=== PATIENT | male | born 1980 | race African-American/Black ===

== ENCOUNTER 2019-12-22 09:26 | Observation (INO) ==
[2019-12-22 09:42] VITALS: BMI 22.5
--- NOTE | 2019-12-22 09:52 | DR.ABDMALE ---
HPI - Time seen Time seen: 09:50 - PCP Primary Care Physician: NFD - Complaint Chief Complaint Doctors Comments: Patient with complaint of abdominal pain and vomiting x 1 month. Hx of same in past but does not know DX. Patient was seen in [place] in the past [address] and labs. Patient denies any DX. Pateint states he is on BP, pain and nausea pills. Chief Complaint:: PT C/O 1 MONTH HISTORY OF INTERMITTENT EPIGASTRIC CRAMPING PAIN ASSOCIATED WITH NAUSEA AND VOMITING. PT STATES THAT PAIN IS WORSENED BY DRINKING LIQUIDS. PT REPORTS DECREASED APPETITE. - COVID-19 Coronavirus risk:travel/contact w/high risk person: No Has patient experienced Coronavirus symptoms: No - Mode of arrival Mode of Arrival: Ambulatory - Timing Onset of Chief Complaint: 12/22/19 Came on: Gradually - Duration Duration: Intermittent How lon Duration: Days - Location Location: Epigastric - Severity Severity: Moderate - Quality Quality: Aching - Context Onset: Gradually History of: Similar pain (dx) - Modifying factors Worsening Factors: Food - Associated signs and symptoms Associated Signs and Symptoms: None, Nausea, Vomiting PMH - PMH Past Medical History: Yes Past Medical History: Diabetes Past Surgical History: Yes Surgical History: Ortho Surgery - Family History History of Family Medical Conditions: Yes Family Medical History: Diabetes Mellitus - Social History Does patient currently use any type of tobacco product: No Have you used tobacco products in the last 12 months: No Type of Tobacco Use: Cigars Does any household member use tobacco: No Alcohol Use: Rarely Do you use any recreational Drugs:: Yes (MARIJUANA DAILY) Lives With: Spouse Lives Where: Home - Travel Risk Coronavirus risk:travel/contact w/high risk person: No Has patient experienced Coronavirus symptoms: No - infectious screening In the last 2 months have you had wt loss of >10#?: NO Have you had fever, night sweats or hemotysis?: No Have you traveled outside the country in the last 6 months?: No Isolation: Standard ROS - Review of Systems Constitutional: No Symptoms Reported Eyes: No Symptoms Reported ENTM: No Symptoms Reported Respiratoy: No Symptoms Reported Cardiovascular: No Symptoms Reported Gastrointestinal/Abdominal: Abdominal Pain, Nausea, Vomiting Genitourinary: No Symptoms Reported Neurological: No Symptoms Reported Musculoskeletal: No Symptoms Reported Integumentary: No Symptoms Reported Hematologic/Lymphatic: No Symptoms Reported Endocrine: No Symptoms Reported Psychiatric: No Symptoms Reported All Other Systems: Reviewed and Negative PE - General Limitations: No Limitations General Appearance: Alert, In No Apparent Distress - Head Head Exam: Normal Inspection - Eyes Eye exam: Normal Appearance, EOMI - ENT ENT Exam: Normal Exam - Neck Neck Exam: Normal Inspection, Full ROM, Trachea Midline - Chest Chest Inspection: Normal Inspection - Respiratory Respiratory Exam: Normal Lung Sounds Bilat Respiratory Exam: Bilateral Clear to Auscultation - Cardiovascular Cardiovascular Exam: Regular Rate - Abdominal Exam Abdominal Exam: Normal Inspection, Normal Bowel Sounds, Soft, Tenderness (epigastric). negative: Distention, Guarding Abdominal Tenderness: Epigastrium - Rectal Rectal Exam: Deferred - Back Back Exam: Normal Inspection - Extremeties Extremities Exam: Normal Inspection - Exam: Male: Normal Inspection, Deferred - Neurologic Neurological Exam: Alert, Oriented X3, CN II-XII Intact - Psychiatric Psychiatric Exam: Normal Mood - Skin Skin Exam: Intact, Normal Color - Vital Signs Vital Signs: Temp Pulse Resp BP Pulse Ox 12/22/19 09:37 98.0 F 68 22 129/77 98 Course - Treatment Treatment: 1135: records from [place] reviewed, labs and ct Abdo/pelvis w/ contrast unremarkable ROR - Labs Reviewed Result Diagrams: 12/22/19 10:06 12/22/19 10:06 - Labs Reviewed Laboratory: WBC 9.9 X10^3/uL (3.6-10.0) 12/22/19 10:06 RBC 4.84 X10^6/uL (4.7-6.0) 12/22/19 10:06 Hgb 13.4 g/dL (13.5-18.0) L 12/22/19 10:06 Hct 40.6 % (42.0-54.0) L 12/22/19 10:06 MCV 83.9 fL (80.0-100.0) 12/22/19 10:06 MCH 27.6 pg (27.0-34.0) 12/22/19 10:06 MCHC 32.9 g/dL (33.0-35.0) L 12/22/19 10:06 RDW 15.8 % (11.6-16.5) 12/22/19 10:06 Plt Count 192 X10^3/uL (150.0-450.0) 12/22/19 10:06 MPV 8.1 fL (7.4-11.0) 12/22/19 10:06 Neut % (Auto) 72.7 % (42.0-75.0) 12/22/19 10:06 Lymph % (Auto) 18.4 % (21.0-51.0) L 12/22/19 10:06 [place] % (Auto) 7.1 % (0.0-13.0) 12/22/19 10:06 Eos % (Auto) 0.9 % (0.9-2.9) 12/22/19 10:06 Baso % (Auto) 0.9 % (0.2-1.0) 12/22/19 10:06 Neut # (Auto) 7.2 x10^3/uL (2.2-4.8) H 12/22/19 10:06 Lymph # (Auto) 1.8 X10^3/uL (1.3-2.9) 12/22/19 10:06 [place] # (Auto) 0.7 x10^3/uL (0.3-0.8) 12/22/19 10:06 Eos # (Auto) 0.1 x10^3/uL (0.0-0.2) 12/22/19 10:06 Baso # (Auto) 0.1 X10^3/uL (0.0-0.1) 12/22/19 10:06 Absolute Nucleated RBC 0.0 /100WBC 12/22/19 10:06 Sodium 141 mmol/L (136-145) 12/22/19 10:06 Corrected Sodium 142 mmol/L (136-145) 12/22/19 10:06 Potassium 3.8 mmol/L (3.5-5.1) 12/22/19 10:06 Chloride 104 mmol/L (98-107) 12/22/19 10:06 Carbon Dioxide 32.1 mmol/L (21-32) H 12/22/19 10:06 BUN 15 mg/dL (7-18) 12/22/19 10:06 Creatinine 1.20 mg/dL (0.70-1.30) 12/22/19 10:06 Est GFR (MDRD) Af Amer > 60 (>60) 12/22/19 10:06 Est GFR (MDRD) Non-Af > 60 (>60) 12/22/19 10:06 Glucose 155 mg/dL (65-99) H 12/22/19 10:06 Calcium 8.6 mg/dL (8.5-10.1) 12/22/19 10:06 Corrected Calcium 9.4 mg/dL (8.5-10.1) 12/22/19 10:06 Total Bilirubin 0.30 mg/dL (0.2-1.0) 12/22/19 10:06 AST 17 Units/L (15-37) 12/22/19 10:06 ALT 18 Units/L (12-78) 12/22/19 10:06 Alkaline Phosphatase 82 Units/L (46-116) 12/22/19 10:06 Total Protein 6.7 g/dL (6.4-8.2) 12/22/19 10:06 Albumin 3.0 g/dL (3.4-5.0) L 12/22/19 10:06 Globulin 3.7 g/dL (2.5-4.5) 12/22/19 10:06 Albumin/Globulin Ratio 0.8 Ratio (1.1-2.1) L 12/22/19 10:06 Lipase 122 Units/L (73-393) 12/22/19 10:06 Opioid - Opioid Risk Tool Total: 0 Total Score Risk Category: Low Risk - Diagnosis Discharge Problem: Abdominal pain Qualifiers: Abdominal location: epigastric Qualified Code(s): R10.13 - Epigastric pain Gastritis Qualifiers: Gastritis type: unspecified gastritis Chronicity: chronic Gastritis bleeding: without bleeding Qualified Code(s): K29.50 - Unspecified chronic gastritis without bleeding - Discharge Plan Condition: Stable - Follow ups/Referrals Follow ups/Referrals: NFD,None [Primary Care Provider] - 3 days - Instructions
[2019-12-22] MEDS ORDERED: ZOFRAN INJ 4 MG VIAL IVP ONE (09:57)
[2019-12-22] MEDS ORDERED: NS 500 ML IV 1,000 ML IV ONE (09:57)
[2019-12-22] MEDS ORDERED: NS 1000 ML 1,000 ML ONE (10:05)
[2019-12-22 10:21] LABS: BASOPHILS # (AUTO) 0.1 X10^3/uL (0.0-0.1); BASOPHILS % (AUTO) 0.9 % (0.2-1.0); EOSINOPHILS # (AUTO) 0.1 x10^3/uL (0.0-0.2); EOSINOPHILS % (AUTO) 0.9 % (0.9-2.9); HEMATOCRIT 40.6 % (42.0-54.0); HEMOGLOBIN 13.4 g/dL (13.5-18.0); LYMPHOCYTES # (AUTO) 1.8 X10^3/uL (1.3-2.9); LYMPHOCYTES % (AUTO) 18.4 % (21.0-51.0); MEAN CORPUSCULAR HEMOGLOBIN 27.6 pg (27.0-34.0); MEAN CORPUSCULAR HGB CONC 32.9 g/dL (33.0-35.0); MEAN CORPUSCULAR VOLUME 83.9 fL (80.0-100.0); MEAN PLATELET VOLUME 8.1 fL (7.4-11.0); MONOCYTES # (AUTO) 0.7 x10^3/uL (0.3-0.8); MONOCYTES % (AUTO) 7.1 % (0.0-13.0); NEUTROPHILS # (AUTO) 7.2 x10^3/uL (2.2-4.8); NEUTROPHILS % (AUTO) 72.7 % (42.0-75.0); PLATELET COUNT 192 X10^3/uL (150.0-450.0); RED BLOOD COUNT 4.84 X10^6/uL (4.7-6.0); RED CELL DISTRIBUTION WIDTH 15.8 % (11.6-16.5); WHITE BLOOD COUNT 9.9 X10^3/uL (3.6-10.0)
[2019-12-22] MEDS ORDERED: ZOFRAN INJ 4 MG VIAL ONE (10:26)
[2019-12-22 10:28] LABS: ALANINE AMINOTRANSFERASE 18 Units/L (12-78); ALKALINE PHOSPHATASE 82 Units/L (46-116); ASPARTATE AMINO TRANSFERASE 17 Units/L (15-37); BLOOD UREA NITROGEN 15 mg/dL (7-18); CALCIUM 8.6 mg/dL (8.5-10.1); CARBON DIOXIDE 32.1 mmol/L (21-32); CHLORIDE 104 mmol/L (98-107); COR CA(FOR HYPOALB) 9.4 mg/dL (8.5-10.1); COR NA(FOR HYPERGLY) 142 mmol/L (136-145); LIPASE 122 Units/L (73-393); SODIUM 141 mmol/L (136-145); TOTAL PROTEIN 6.7 g/dL (6.4-8.2); eGFR NON BLACK RACES > 60 (>60)
[2019-12-22] MEDS: DILAUDID INJ IVP PRN ×2 (13:45→20:53)
[2019-12-22] MEDS: PROTONIX INJ 40 MG VIAL IVP SCH (13:53)
[2019-12-22] MEDS: D5 1/2 NS 1000 ML 1,000 ML IV SCH ×3 (13:53→22:12)
[2019-12-22] MEDS ORDERED: ZOFRAN INJ 4 MG VIAL IVP PRN (13:54)
--- NOTE | 2019-12-22 14:22 | DR.H&P ---
H&P History & Physical for Day of: H&P Date: 12/22/19 Chief Complaint Chief Complaint: Abdominal pain Allergies Allergies Allergy/AdvReac Type Severity Reaction Status Date / Time No Known Drug Allergies Allergy Verified 12/22/19 14:49 History of Present Illness History of Present Illness: Pt is a 39 yo m pmhx HTN, DM, c/o abdominal pain and vomiting for the past month that has acutely worsened. Reports pain is worse right after eating and is associated with nausea. He states that he rarely drinks alcohol, and smokes(marijuana), denies any other drug use. He was recently seen at [facility] and had CT abdomen that was negative and labs that were unremarkable. Initial labs: Wbc 9.9, Hgb 13.4, Plt 192, Na 141, K 3.8, Cr 1.2. AST 17, ALT 18, AlkP 82, Lipase 122. -Dr Shaw-Surgery consulted. Treat nausea with Zofran, start PPI, keep pt NPO and on SSI. Will get ultrasound of abdomen. Plan for EGD in the morning. Past Medical History Past Medical History: Diabetes and Hypertension Past Surgical History Surgical History: Ortho Surgery Family History Family Medical History: Diabetes Mellitus Social History Does patient currently use any type of tobacco product: No Have you used tobacco products in the last 12 months: No Type of Tobacco Use: Cigars Does any household member use tobacco: No Alcohol Use: Rarely Medications Home Medications: No Known Drug Allergies Allergy (Verified 12/22/19 13:56) CONTINUE taking the following medications famotidine 20 mg PO BID 12/22/19 [History] hyoscyamine sulfate 0.125 mg PO QID PRN 12/22/19 [History] insulin lispro protamin-lispro [Humalog Mix 75-25(U-100)Insuln] 25 unit SUBCUT HS 12/22/19 [History] insulin lispro protamin-lispro [Humalog Mix 75-25(U-100)Insuln] 45 ml SUBCUT DAILY 12/22/19 [History] lisinopril 20 mg PO DAILY 12/22/19 [History] losartan-hydrochlorothiazide [Hyzaar] 1 tab PO DAILY 12/22/19 [History] Labs Result Diagrams: 12/22/19 10:06 12/22/19 10:06 Labs: Laboratory WBC 9.9 X10^3/uL (3.6-10.0) 12/22/19 10:06 RBC 4.84 X10^6/uL (4.7-6.0) 12/22/19 10:06 Hgb 13.4 g/dL (13.5-18.0) L 12/22/19 10:06 Hct 40.6 % (42.0-54.0) L 12/22/19 10:06 MCV 83.9 fL (80.0-100.0) 12/22/19 10:06 MCH 27.6 pg (27.0-34.0) 12/22/19 10:06 MCHC 32.9 g/dL (33.0-35.0) L 12/22/19 10:06 RDW 15.8 % (11.6-16.5) 12/22/19 10:06 Plt Count 192 X10^3/uL (150.0-450.0) 12/22/19 10:06 MPV 8.1 fL (7.4-11.0) 12/22/19 10:06 Neut % (Auto) 72.7 % (42.0-75.0) 12/22/19 10:06 Lymph % (Auto) 18.4 % (21.0-51.0) L 12/22/19 10:06 [place] % (Auto) 7.1 % (0.0-13.0) 12/22/19 10:06 Eos % (Auto) 0.9 % (0.9-2.9) 12/22/19 10:06 Baso % (Auto) 0.9 % (0.2-1.0) 12/22/19 10:06 Neut # (Auto) 7.2 x10^3/uL (2.2-4.8) H 12/22/19 10:06 Lymph # (Auto) 1.8 X10^3/uL (1.3-2.9) 12/22/19 10:06 [place] # (Auto) 0.7 x10^3/uL (0.3-0.8) 12/22/19 10:06 Eos # (Auto) 0.1 x10^3/uL (0.0-0.2) 12/22/19 10:06 Baso # (Auto) 0.1 X10^3/uL (0.0-0.1) 12/22/19 10:06 Absolute Nucleated RBC 0.0 /100WBC 12/22/19 10:06 Sodium 141 mmol/L (136-145) 12/22/19 10:06 Corrected Sodium 142 mmol/L (136-145) 12/22/19 10:06 Potassium 3.8 mmol/L (3.5-5.1) 12/22/19 10:06 Chloride 104 mmol/L (98-107) 12/22/19 10:06 Carbon Dioxide 32.1 mmol/L (21-32) H 12/22/19 10:06 BUN 15 mg/dL (7-18) 12/22/19 10:06 Creatinine 1.20 mg/dL (0.70-1.30) 12/22/19 10:06 Est GFR (MDRD) Af Amer > 60 (>60) 12/22/19 10:06 Est GFR (MDRD) Non-Af > 60 (>60) 12/22/19 10:06 Glucose 155 mg/dL (65-99) H 12/22/19 10:06 POC Glucose (mg/dL) 176 mg/dL (65-99) H 12/22/19 13:39 Calcium 8.6 mg/dL (8.5-10.1) 12/22/19 10:06 Corrected Calcium 9.4 mg/dL (8.5-10.1) 12/22/19 10:06 Total Bilirubin 0.30 mg/dL (0.2-1.0) 12/22/19 10:06 AST 17 Units/L (15-37) 12/22/19 10:06 ALT 18 Units/L (12-78) 12/22/19 10:06 Alkaline Phosphatase 82 Units/L (46-116) 12/22/19 10:06 Total Protein 6.7 g/dL (6.4-8.2) 12/22/19 10:06 Albumin 3.0 g/dL (3.4-5.0) L 12/22/19 10:06 Globulin 3.7 g/dL (2.5-4.5) 12/22/19 10:06 Albumin/Globulin Ratio 0.8 Ratio (1.1-2.1) L 12/22/19 10:06 Lipase 122 Units/L (73-393) 12/22/19 10:06 Review of Systems Constitutional: No Symptoms Reported Eyes: No Symptoms Reported ENT: No Symptoms Reported Respiratory: No Symptoms Reported Cardiovascular: No Symptoms Reported Gastrointestinal: Nausea, Vomiting and Abdominal Pain Musculoskeletal: No Symptoms Reported Skin: No Symptoms Reported Neurological: No Symptoms Reported Physical Exam Vital Signs: Temperature 98.0 F Pulse Rate [Left Brachial] 60 Pulse Rate 68 Respiratory Rate 20 Blood Pressure [Left Arm] 181/85 Blood Pressure 129/77 O2 Sat by Pulse Oximetry 98 Oriented: Normal Eyes: Normal Ear: Normal Nose: Normal Respiratory: Clear Throughout Cardiovascular: Normal : Normal Auscultation: Bowel Sounds: Normal Palpation: Normal Tenderness: LLQ and Epigastric Skin: Normal Musculoskeletal: Normal Psychiatric: Normal Assessment/Plan (1) Gastritis: Qualifiers: Chronicity: chronic Gastritis bleeding: without bleeding Gastritis type: unspecified gastritis Qualified Code(s): K29.50 - Unspecified chronic gastritis without bleeding Status: Acute Plan: Keep NPO Plan for procedure tomorrow per surgery. (2) Abdominal pain: Qualifiers: Abdominal location: epigastric Qualified Code(s): R10.13 - Epigastric pain Status: Acute (3) Hypertension: Qualifiers: Hypertension type: essential hypertension Qualified Code(s): I10 - Essential (primary) hypertension Status: Acute (4) Diabetes: Qualifiers: Diabetes mellitus complication status: without complication Diabetes mellitus type: type 1 Qualified Code(s): E10.9 - Type 1 diabetes mellitus without complications Status: Acute Review H&P Reviewed: Yes Patient was examined?: Yes
[2019-12-22] MEDS ORDERED: APRESOLINE INJ 20 MG VIAL IVP PRN (15:07)
[2019-12-22] MEDS: HYZAAR 50/12.5 MG PO SCH (16:15)
--- NOTE | 2019-12-22 17:16 | US ---
HISTORYABD/EPIGASTRIC PAINSTUDYLimited abdominal ultrasoundCOMPARISONNoneFINDINGSLiver is normal in size and echotexture with no focal intrahepatic ab normality seen. Portal vein is patent with normal hepatopetal flow.Gallbladder is normal appearing wi th no cholelithiasis, gallbladder wall thickening, or localized tenderness. Common bile duct measures 3 millimeters in diameter.Right kidney is 11.7 centimeters in length. No hydronephrosis, echogenic c alculi, or renal mass is seen on the right.IVC and pancreas are normal.IMPRESSIONUnremarkable ultraso und of the right upper abdominal quadrant. Specifically, no evidence of cholelithiasisElectronically signed by: HUDSON NEWTON (Dec 22, 2019 17:15:21)
[2019-12-23] MEDS: D5 1/2 NS 1000 ML 1,000 ML IV SCH ×3 (04:30→22:13)
[2019-12-23 05:43] LABS: BASOPHILS # (AUTO) 0.1 X10^3/uL (0.0-0.1); EOSINOPHILS # (AUTO) 0.2 x10^3/uL (0.0-0.2); HEMATOCRIT 38.3 % (42.0-54.0); HEMOGLOBIN 12.7 g/dL (13.5-18.0); LYMPHOCYTES # (AUTO) 2.4 X10^3/uL (1.3-2.9); LYMPHOCYTES % (AUTO) 31.5 % (21.0-51.0); MEAN CORPUSCULAR HEMOGLOBIN 28.1 pg (27.0-34.0); MEAN CORPUSCULAR HGB CONC 33.2 g/dL (33.0-35.0); MEAN CORPUSCULAR VOLUME 84.7 fL (80.0-100.0); MONOCYTES # (AUTO) 0.5 x10^3/uL (0.3-0.8); MONOCYTES % (AUTO) 6.3 % (0.0-13.0); NEUTROPHILS # (AUTO) 4.5 x10^3/uL (2.2-4.8); NEUTROPHILS % (AUTO) 59.2 % (42.0-75.0); PLATELET COUNT 189 X10^3/uL (150.0-450.0); RED BLOOD COUNT 4.52 X10^6/uL (4.7-6.0); RED CELL DISTRIBUTION WIDTH 15.6 % (11.6-16.5); WHITE BLOOD COUNT 7.6 X10^3/uL (3.6-10.0)
[2019-12-23 06:09] LABS: ALANINE AMINOTRANSFERASE 16 Units/L (12-78); ALBUMIN 2.5 g/dL (3.4-5.0); ALKALINE PHOSPHATASE 73 Units/L (46-116); ASPARTATE AMINO TRANSFERASE 15 Units/L (15-37); BLOOD UREA NITROGEN 10 mg/dL (7-18); CALCIUM 8.3 mg/dL (8.5-10.1); CARBON DIOXIDE 29.1 mmol/L (21-32); CHLORIDE 101 mmol/L (98-107); COR CA(FOR HYPOALB) 9.5 mg/dL (8.5-10.1); COR NA(FOR HYPERGLY) 138 mmol/L (136-145); CREATININE 1.09 mg/dL (0.70-1.30); SODIUM 136 mmol/L (136-145); eGFR NON BLACK RACES > 60 (>60)
[2019-12-23] MEDS ORDERED: POTASSIUM CHL 40 MEQ/NS 0.45% 500 ML IV PRN (06:22)
[2019-12-23] MEDS ORDERED: KLOR-CON PO PRN (06:22)
[2019-12-23] MEDS ORDERED: POTASSIUM CHLORIDE LIQ 20 MEQ UDC PO PRN (06:22)
[2019-12-23] MEDS ORDERED: K-RIDER 10 MEQ/NS 100 ML 10 MEQ/100 ML BAG IV PRN (06:22)
[2019-12-23] MEDS ORDERED: MICRO K EXTEN CAP 10 MEQ PO PRN (06:22)
[2019-12-23] MEDS ORDERED: POTASSIUM CHL 60 MEQ/NS 0.45% 500 ML IV PRN (06:22)
[2019-12-23] MEDS: HYZAAR 50/12.5 MG PO SCH (09:10)
[2019-12-23] MEDS: K-DUR TAB 20 MEQ PO PRN (09:10)
[2019-12-23] MEDS: PROTONIX INJ 40 MG VIAL IVP SCH (09:10)
[2019-12-23] MEDS ORDERED: DIPRIVAN VIAL 20 ML ONE (09:20)
[2019-12-23] MEDS ORDERED: LR 1000 ML IV 1,000 ML IV ONE (09:30)
[2019-12-23] MEDS ORDERED: DIPRIVAN VIAL 10 ML ONE (09:42)
--- NOTE | 2019-12-23 09:54 | OR.IMMED ---
Immediate Post-Op Note - Immediate Post-Op Note Pre-Op Diagnosis: abdominal pain , gastritis , PUD. Post-Op Diagnosis: diffuse gastritis , no bleeding , ulcers or obstruction . Procedure: EGD with Bx Surgeon/Auto Radio Mechanic: Valeria Drains: NONE Complications: none Condition: Stable (on IV Protonix .and for Biliary scan ..)
[2019-12-23] MEDS ORDERED: TORADOL 30 MG VIAL IVP ONE (13:32)
[2019-12-23] MEDS ORDERED: TORADOL 30 MG VIAL ONE (13:34)
[2019-12-23] MEDS ORDERED: DEMEROL INJ IVP ONE (13:49)
--- NOTE | 2019-12-23 14:40 | NM ---
HISTORYABD PAINSTUDYHIDA/HEPATOBILIARY SCAN W/EF, patient was injected with 5.57 millicuries of technetium labeled mebrofenin IV with imaging of the right upper quadrant for 60 minutes. Patient then drank 8 ounces of Ensure with gallbladder ejection fraction being calculated.COMPARISONUltrasound from previous dayFINDINGSThere is homogeneous distribution of the radiotracer in the liver. There is prompt visualization of the gallbladder at 5 minutes. Small bowel activity is not identified until 25 minutes. Gallbladder ejection fraction of 10 percent is calculated which is abnormally low.IMPRESSIONSlight delay in visualization of small-bowel activity with prominently diminished gallbladder ejection fraction of 10 percent. Findings suggest possible chronic cholecystitis/gallbladder dyskinesia.Electronically signed by: Robby Jeffrey (Dec 23, 2019 14:39:17)
--- NOTE | 2019-12-23 14:43 | PCM.PROG ---
Progress Note Progress Note for Day of Date of Exam: 12/23/19 Subjective Subjective: Pt is a 39 yo m pmhx HTN, DM, admitted for acute gastritis. He reports abdominal pain still present, nausea and pain medication has been helping. He is NPO and scheduled for EGD today. Labs/Imaging: Wbc 7.6, Hgb 12.7, Plt 189, Na 136, K 3.9, Cr 1.09. U/S gallbladder negative. -Continue Zofran, PPI. Follow up surgery recs and EGD results. Continue to monitor and follow up labs in the morning. Past Medical Family Social History Past Med/Fam/Surg Hx: No changes since H&P Allergies: Allergies No Known Drug Allergies Allergy (Verified 12/22/19 14:49) Review of Systems ROS: No change since H&P Vital Signs and I&O's Vital Signs: Temperature 98.6 F Pulse Rate [Left Brachial] 74 Pulse Rate 68 Respiratory Rate 19 Blood Pressure [Left Arm] 141/77 Blood Pressure 129/77 O2 Sat by Pulse Oximetry 100 Intake and Output: Intake & Output 12/20/19 12/21/19 12/22/19 12/23/19 23:59 23:59 23:59 23:59 Intake Total 0 / 0 0 / 0 Output Total 0 / 0 Balance 0 / 0 0 / 0 Physical Exam Oriented: Normal Eyes: Normal Ear: Normal Nose: Normal Respiratory: Normal Cardiovascular: Normal : Normal Auscultation: Bowel Sounds: Normal Tenderness: Epigastric Skin: Normal Musculoskeletal: Normal Psychiatric: Normal Speech Pattern: Clear Laboratory and Diagnostics Result Diagrams: 12/23/19 04:40 12/23/19 12:28 Labs: Laboratory WBC 7.6 X10^3/uL (3.6-10.0) 12/23/19 04:40 RBC 4.52 X10^6/uL (4.7-6.0) L 12/23/19 04:40 Hgb 12.7 g/dL (13.5-18.0) L 12/23/19 04:40 Hct 38.3 % (42.0-54.0) L 12/23/19 04:40 MCV 84.7 fL (80.0-100.0) 12/23/19 04:40 MCH 28.1 pg (27.0-34.0) 12/23/19 04:40 MCHC 33.2 g/dL (33.0-35.0) 12/23/19 04:40 RDW 15.6 % (11.6-16.5) 12/23/19 04:40 Plt Count 189 X10^3/uL (150.0-450.0) 12/23/19 04:40 MPV 9.0 fL (7.4-11.0) 12/23/19 04:40 Neut % (Auto) 59.2 % (42.0-75.0) 12/23/19 04:40 Lymph % (Auto) 31.5 % (21.0-51.0) 12/23/19 04:40 [place] % (Auto) 6.3 % (0.0-13.0) 12/23/19 04:40 Eos % (Auto) 2.0 % (0.9-2.9) 12/23/19 04:40 Baso % (Auto) 1.0 % (0.2-1.0) 12/23/19 04:40 Neut # (Auto) 4.5 x10^3/uL (2.2-4.8) 12/23/19 04:40 Lymph # (Auto) 2.4 X10^3/uL (1.3-2.9) 12/23/19 04:40 [place] # (Auto) 0.5 x10^3/uL (0.3-0.8) 12/23/19 04:40 Eos # (Auto) 0.2 x10^3/uL (0.0-0.2) 12/23/19 04:40 Baso # (Auto) 0.1 X10^3/uL (0.0-0.1) 12/23/19 04:40 Absolute Nucleated RBC 0.1 /100WBC 12/23/19 04:40 Sodium 136 mmol/L (136-145) 12/23/19 04:40 Corrected Sodium 138 mmol/L (136-145) 12/23/19 04:40 Potassium 3.9 mmol/L (3.5-5.1) 12/23/19 12:28 Chloride 101 mmol/L (98-107) 12/23/19 04:40 Carbon Dioxide 29.1 mmol/L (21-32) 12/23/19 04:40 BUN 10 mg/dL (7-18) 12/23/19 04:40 Creatinine 1.09 mg/dL (0.70-1.30) 12/23/19 04:40 Est GFR (MDRD) Af Amer > 60 (>60) 12/23/19 04:40 Est GFR (MDRD) Non-Af > 60 (>60) 12/23/19 04:40 Glucose 203 mg/dL (65-99) H 12/23/19 04:40 POC Glucose (mg/dL) 178 mg/dL (65-99) H 12/23/19 11:02 Calcium 8.3 mg/dL (8.5-10.1) L 12/23/19 04:40 Corrected Calcium 9.5 mg/dL (8.5-10.1) 12/23/19 04:40 Magnesium Cancelled 12/23/19 04:44 Total Bilirubin 0.40 mg/dL (0.2-1.0) 12/23/19 04:40 AST 15 Units/L (15-37) 12/23/19 04:40 ALT 16 Units/L (12-78) 12/23/19 04:40 Alkaline Phosphatase 73 Units/L (46-116) 12/23/19 04:40 Total Protein 6.0 g/dL (6.4-8.2) L 12/23/19 04:40 Albumin 2.5 g/dL (3.4-5.0) L 12/23/19 04:40 Globulin 3.5 g/dL (2.5-4.5) 12/23/19 04:40 Albumin/Globulin Ratio 0.7 Ratio (1.1-2.1) L 12/23/19 04:40 Lipase 122 Units/L (73-393) 12/22/19 10:06 Tissue Pathology To follow 12/23/19 09:40 Plan (1) Gastritis: Status: Acute Qualifiers: Chronicity: chronic Gastritis bleeding: without bleeding Gastritis type: unspecified gastritis Qualified Code(s): K29.50 - Unspecified chronic gastritis without bleeding Plan: EGD today (2) Abdominal pain: Status: Acute Qualifiers: Abdominal location: epigastric Qualified Code(s): R10.13 - Epigastric pain Plan: Zofran, Pain medication (3) Hypertension: Status: Acute Qualifiers: Hypertension type: essential hypertension Qualified Code(s): I10 - Essential (primary) hypertension (4) Diabetes: Status: Acute Qualifiers: Diabetes mellitus complication status: without complication Diabetes mellitus type: type 1 Qualified Code(s): E10.9 - Type 1 diabetes mellitus without complications
--- NOTE | 2019-12-23 17:32 | RAD ---
HISTORYPRE OP GALLBLADDER, HTNSTUDYCHEST, 1 VIEWCOMPARISONNone availableFINDINGSThe trachea is midline. The cardiac silhouette is unremarkable . The lungs are clear without focal infiltrate or effusion. The bony thorax is unremarkable.[ ]IMPRESSIONNo acute cardiopulmonary disease.Electronically signed by: MCKINLEY JULIEN (Dec 23, 2019 17:30:42)
[2019-12-23 18:48] LABS: CKMB % 0.6 % (<4); CREATINE KINASE 200 Units/L (39-308); CREATINE KINASE MB 1.1 ng/mL (0-4.0); TROPONIN I < 0.02 ng/mL (0-1.5)
[2019-12-23] MEDS: MAGNESIUM SULFATE 1 GRAM/100 mL PREMIX 1 GM/100 ML BAG IV PRN ×2 (20:12→21:38)
[2019-12-23] MEDS: HumuLIN R SC PRN (21:39)
[2019-12-24] MEDS: DILAUDID INJ IVP PRN ×2 (00:37→12:23)
[2019-12-24 05:29] LABS: BASOPHILS # (AUTO) 0.1 X10^3/uL (0.0-0.1); BASOPHILS % (AUTO) 0.8 % (0.2-1.0); EOSINOPHILS # (AUTO) 0.1 x10^3/uL (0.0-0.2); HEMATOCRIT 42.2 % (42.0-54.0); HEMOGLOBIN 14.2 g/dL (13.5-18.0); LYMPHOCYTES # (AUTO) 2.7 X10^3/uL (1.3-2.9); LYMPHOCYTES % (AUTO) 38.1 % (21.0-51.0); MEAN CORPUSCULAR HEMOGLOBIN 28.2 pg (27.0-34.0); MEAN CORPUSCULAR HGB CONC 33.6 g/dL (33.0-35.0); MEAN CORPUSCULAR VOLUME 83.8 fL (80.0-100.0); MEAN PLATELET VOLUME 8.5 fL (7.4-11.0); MONOCYTES # (AUTO) 0.5 x10^3/uL (0.3-0.8); MONOCYTES % (AUTO) 7.2 % (0.0-13.0); NEUTROPHILS # (AUTO) 3.8 x10^3/uL (2.2-4.8); NEUTROPHILS % (AUTO) 52.9 % (42.0-75.0); PLATELET COUNT 206 X10^3/uL (150.0-450.0); RED BLOOD COUNT 5.03 X10^6/uL (4.7-6.0); RED CELL DISTRIBUTION WIDTH 15.5 % (11.6-16.5); WHITE BLOOD COUNT 7.2 X10^3/uL (3.6-10.0)
[2019-12-24 05:45] LABS: ALANINE AMINOTRANSFERASE 15 Units/L (12-78); ALBUMIN 2.6 g/dL (3.4-5.0); ALKALINE PHOSPHATASE 80 Units/L (46-116); ASPARTATE AMINO TRANSFERASE 15 Units/L (15-37); BLOOD UREA NITROGEN 12 mg/dL (7-18); CALCIUM 8.5 mg/dL (8.5-10.1); CARBON DIOXIDE 29.4 mmol/L (21-32); CHLORIDE 103 mmol/L (98-107); COR CA(FOR HYPOALB) 9.6 mg/dL (8.5-10.1); COR NA(FOR HYPERGLY) 139 mmol/L (136-145); CREATININE 1.21 mg/dL (0.70-1.30); MAGNESIUM 1.9 mg/dL (1.7-2.9); SODIUM 138 mmol/L (136-145); TOTAL PROTEIN 6.2 g/dL (6.4-8.2); eGFR NON BLACK RACES > 60 (>60)
[2019-12-24] MEDS: D5 1/2 NS 1000 ML 1,000 ML IV SCH (06:38)
[2019-12-24] MEDS ORDERED: DILAUDID INJ ONE (08:26)
[2019-12-24] MEDS ORDERED: FENTANYL INJ 100 mcg ONE (08:26)
--- NOTE | 2019-12-24 08:34 | PCM.PROG ---
Progress Note Progress Note for Day of Date of Exam: 12/24/19 Subjective Subjective: Pt is a 39 yo m pmhx HTN, DM, admitted for acute gastritis. He had an EGD yesterday that showed diffuse gastritis and mild inflammation. HIDA was done that showed gallbladder EF 10%. He is scheduled to have a lap cholecystectomy today. He is otherwise feeling the same as yesterday. Labs/Imag ing: Wbc 7.2, Hgb 14.2, Plt 206, Na 138, K 3.3, Cr 1.21. U/S gallbladder negative. -Continue Zofran, PPI. Continue to monitor and follow up labs in the morning. Past Medical Family Social History Past Med/Fam/Surg Hx: No changes since H&P Allergies: Allergies No Known Drug Allergies Allergy (Verified 12/22/19 14:49) Review of Systems ROS: No change since H&P Vital Signs and I&O's Vital Signs: Temperature 98.3 F Pulse Rate [Right Brachial] 65 Pulse Rate [Left Brachial] 74 Pulse Rate 68 Respiratory Rate 18 Blood Pressure [Right Arm] 186/85 Blood Pressure [Left Arm] 145/91 Blood Pressure 129/77 O2 Sat by Pulse Oximetry 100 Intake and Output: Intake & Output 12/21/19 12/22/19 12/23/19 12/24/19 23:59 23:59 23:59 23:59 Intake Total 0 / 0 1480 / 1480 760 / 760 Output Total 0 / 0 400 / 400 Balance 0 / 0 1080 / 1080 760 / 760 Physical Exam Oriented: Normal Eyes: Normal Ear: Normal Nose: Normal Respiratory: Normal Cardiovascular: Normal : Normal Auscultation: Bowel Sounds: Normal Tenderness: Epigastric Skin: Normal Musculoskeletal: Normal Psychiatric: Normal Speech Pattern: Clear Laboratory and Diagnostics Result Diagrams: 12/24/19 04:34 12/24/19 04:34 Labs: Laboratory WBC 7.2 X10^3/uL (3.6-10.0) 12/24/19 04:34 RBC 5.03 X10^6/uL (4.7-6.0) 12/24/19 04:34 Hgb 14.2 g/dL (13.5-18.0) 12/24/19 04:34 Hct 42.2 % (42.0-54.0) 12/24/19 04:34 MCV 83.8 fL (80.0-100.0) 12/24/19 04:34 MCH 28.2 pg (27.0-34.0) 12/24/19 04:34 MCHC 33.6 g/dL (33.0-35.0) 12/24/19 04:34 RDW 15.5 % (11.6-16.5) 12/24/19 04:34 Plt Count 206 X10^3/uL (150.0-450.0) 12/24/19 04:34 MPV 8.5 fL (7.4-11.0) 12/24/19 04:34 Neut % (Auto) 52.9 % (42.0-75.0) 12/24/19 04:34 Lymph % (Auto) 38.1 % (21.0-51.0) 12/24/19 04:34 [place] % (Auto) 7.2 % (0.0-13.0) 12/24/19 04:34 Eos % (Auto) 1.0 % (0.9-2.9) 12/24/19 04:34 Baso % (Auto) 0.8 % (0.2-1.0) 12/24/19 04:34 Neut # (Auto) 3.8 x10^3/uL (2.2-4.8) 12/24/19 04:34 Lymph # (Auto) 2.7 X10^3/uL (1.3-2.9) 12/24/19 04:34 [place] # (Auto) 0.5 x10^3/uL (0.3-0.8) 12/24/19 04:34 Eos # (Auto) 0.1 x10^3/uL (0.0-0.2) 12/24/19 04:34 Baso # (Auto) 0.1 X10^3/uL (0.0-0.1) 12/24/19 04:34 Absolute Nucleated RBC 0.0 /100WBC 12/24/19 04:34 Sodium 138 mmol/L (136-145) 12/24/19 04:34 Corrected Sodium 139 mmol/L (136-145) 12/24/19 04:34 Potassium 3.3 mmol/L (3.5-5.1) L 12/24/19 04:34 Chloride 103 mmol/L (98-107) 12/24/19 04:34 Carbon Dioxide 29.4 mmol/L (21-32) 12/24/19 04:34 BUN 12 mg/dL (7-18) 12/24/19 04:34 Creatinine 1.21 mg/dL (0.70-1.30) 12/24/19 04:34 Est GFR (MDRD) Af Amer > 60 (>60) 12/24/19 04:34 Est GFR (MDRD) Non-Af > 60 (>60) 12/24/19 04:34 Glucose 138 mg/dL (65-99) H 12/24/19 04:34 POC Glucose (mg/dL) 154 mg/dL (65-99) H 12/24/19 05:16 Calcium 8.5 mg/dL (8.5-10.1) 12/24/19 04:34 Corrected Calcium 9.6 mg/dL (8.5-10.1) 12/24/19 04:34 Magnesium 1.9 mg/dL (1.7-2.9) 12/24/19 04:34 Total Bilirubin 0.30 mg/dL (0.2-1.0) 12/24/19 04:34 AST 15 Units/L (15-37) 12/24/19 04:34 ALT 15 Units/L (12-78) 12/24/19 04:34 Alkaline Phosphatase 80 Units/L (46-116) 12/24/19 04:34 Creatine Kinase 200 Units/L (39-308) 12/23/19 18:09 CK-MB (CK-2) 1.1 ng/mL (0-4.0) 12/23/19 18:09 CK/CKMB % Calc 0.6 % (<4) 12/23/19 18:09 Troponin I < 0.02 ng/mL (0-1.5) 12/23/19 18:09 Total Protein 6.2 g/dL (6.4-8.2) L 12/24/19 04:34 Albumin 2.6 g/dL (3.4-5.0) L 12/24/19 04:34 Globulin 3.6 g/dL (2.5-4.5) 12/24/19 04:34 Albumin/Globulin Ratio 0.7 Ratio (1.1-2.1) L 12/24/19 04:34 Lipase 122 Units/L (73-393) 12/22/19 10:06 Tissue Pathology To follow 12/23/19 09:40 Plan (1) Gastritis: Status: Acute Qualifiers: Chronicity: chronic Gastritis bleeding: without bleeding Gastritis type: unspecified gastritis Qualified Code(s): K29.50 - Unspecified chronic gastritis without bleeding Plan: PPI (2) Abdominal pain: Status: Acute Qualifiers: Abdominal location: epigastric Qualified Code(s): R10.13 - Epigastric pain Plan: Zofran, Pain medication (3) Hypertension: Status: Acute Qualifiers: Hypertension type: essential hypertension Qualified Code(s): I10 - Essential (primary) hypertension (4) Diabetes: Status: Acute Qualifiers: Diabetes mellitus complication status: without complication Diabetes mellitus type: type 1 Qualified Code(s): E10.9 - Type 1 diabetes mellitus without complications
[2019-12-24] MEDS: PROTONIX INJ 40 MG VIAL IVP SCH (08:39)
[2019-12-24] MEDS: HYZAAR 50/12.5 MG PO SCH (08:39)
[2019-12-24] MEDS ORDERED: LR 1000 ML IV 1,000 ML IV ONE (08:46)
[2019-12-24] MEDS ORDERED: ANCEF 1 GRAM IV PREMIX* 1 G/50 ML BAG IV ONE (08:48)
[2019-12-24] MEDS ORDERED: BACTROBAN TOPICAL OINT ONE (08:49)
[2019-12-24] MEDS ORDERED: PHENERGAN INJ 25 MG IM PRN (09:46)
[2019-12-24] MEDS ORDERED: BENADRYL INJ 50 MG VIAL IVP PRN (09:46)
[2019-12-24] MEDS ORDERED: ZOFRAN INJ 4 MG VIAL IVP PRN (09:46)
[2019-12-24] MEDS ORDERED: DILAUDID INJ IVP PRN (09:46)
[2019-12-24] MEDS ORDERED: REGLAN INJ 10 MG VIAL IVP PRN (09:46)
--- NOTE | 2019-12-24 09:48 | OR.IMMED ---
Immediate Post-Op Note - Immediate Post-Op Note Pre-Op Diagnosis: cholecystitis Post-Op Diagnosis: recurrent cholecystitis with adhesions and distended GB . normal appendix, terminal ileum , sigmoid . Procedure: lap [place] . Surgeon/Acute Dialysis Registered Nurse: Valeria Drains: NONE Complications: none Condition: Stable (on clear liquid . may be discharged later on today and F/U in 10 days .)
[2019-12-24] MEDS ORDERED: APRESOLINE INJ 20 MG VIAL ONE (10:01)
[2019-12-24] MEDS: HumuLIN R SC PRN (11:31)
[2019-12-24] MEDS: K-DUR TAB 20 MEQ PO PRN (11:32)
--- NOTE | 2019-12-24 13:01 | W.DIS.FURT ---
Summary of Discharge Discharge Summary of Date Date of Exam: 12/24/19 Admission Date Date of Admission: 12/22/19 Admission Diagnosis Hospital Course: Pt is a 39 yo m pmhx HTN, DM, admitted for acute gastritis. General surgery-Dr Shaw was consulted. He had an EGD performed that showed diffuse gastritis and mild inflammation. HIDA was done that showed gallbladder EF 10%. He had lap cholecystectomy performed without complications.Labs/Imaging: Wbc 7.2, Hgb 14.2, Plt 206, Na 138, K 3.3, Cr 1.21. U/S gallbladder negative. -Pt symptoms improved, he was discharged in stable condition. Rx nexium, famotidine, zofran, norco. He is instructed to follow up with pcp and general surgery 1-2 weeks. Vital Signs: Vital Signs (72 hours) 12/22/19 09:37 12/22/19 12:59 12/22/19 13:45 Temperature 98.0 F Pulse Rate 68 Pulse Rate [Left Brachial] Pulse Rate [Right Brachial] Respiratory Rate 22 20 21 Blood Pressure 129/77 Blood Pressure [Left Arm] Blood Pressure [Right Arm] O2 Sat by Pulse Oximetry 98 98 12/22/19 14:15 12/22/19 14:20 12/22/19 16:00 Temperature 98.0 F 97.6 F Pulse Rate Pulse Rate [Left Brachial] 60 70 Pulse Rate [Right Brachial] Respiratory Rate 21 20 18 Blood Pressure Blood Pressure [Left Arm] 181/85 135/74 Blood Pressure [Right Arm] O2 Sat by Pulse Oximetry 98 99 12/22/19 20:00 12/22/19 20:53 12/22/19 21:23 Temperature 98.2 F Pulse Rate Pulse Rate [Left Brachial] 90 Pulse Rate [Right Brachial] Respiratory Rate 22 20 20 Blood Pressure Blood Pressure [Left Arm] 190/73 Blood Pressure [Right Arm] O2 Sat by Pulse Oximetry 91 L 12/23/19 00:00 12/23/19 04:00 12/23/19 08:00 Temperature 97.6 F 98.4 F 98.4 F Pulse Rate Pulse Rate [Left Brachial] 76 76 80 Pulse Rate [Right Brachial] Respiratory Rate 20 20 20 Blood Pressure Blood Pressure [Left Arm] 152/100 161/94 162/86 Blood Pressure [Right Arm] O2 Sat by Pulse Oximetry 100 100 100 12/23/19 10:30 12/23/19 10:45 12/23/19 11:00 Temperature 98.6 F 98.6 F 98.6 F Pulse Rate Pulse Rate [Left Brachial] Pulse Rate [Right Brachial] 74 74 73 Respiratory Rate 18 18 18 Blood Pressure Blood Pressure [Left Arm] Blood Pressure [Right Arm] 153/95 141/77 141/75 O2 Sat by Pulse Oximetry 99 98 99 12/23/19 11:15 12/23/19 11:30 12/23/19 12:00 Temperature 98.5 F 98.5 F 98.6 F Pulse Rate Pulse Rate [Left Brachial] 74 Pulse Rate [Right Brachial] 86 62 Respiratory Rate 18 18 18 Blood Pressure Blood Pressure [Left Arm] 141/77 Blood Pressure [Right Arm] 139/85 173/74 O2 Sat by Pulse Oximetry 98 98 100 12/23/19 13:41 12/23/19 14:11 12/23/19 16:00 Temperature 98.3 F Pulse Rate Pulse Rate [Left Brachial] Pulse Rate [Right Brachial] 83 Respiratory Rate 20 19 18 Blood Pressure Blood Pressure [Left Arm] Blood Pressure [Right Arm] 186/85 O2 Sat by Pulse Oximetry 99 12/23/19 20:00 12/24/19 00:00 12/24/19 00:37 Temperature 97.6 F 98.5 F Pulse Rate Pulse Rate [Left Brachial] Pulse Rate [Right Brachial] 79 69 Respiratory Rate 20 20 20 Blood Pressure Blood Pressure [Left Arm] 165/86 140/78 Blood Pressure [Right Arm] O2 Sat by Pulse Oximetry 100 100 12/24/19 01:07 12/24/19 04:00 12/24/19 08:00 Temperature 98.3 F 98.4 F Pulse Rate Pulse Rate [Left Brachial] Pulse Rate [Right Brachial] 65 66 Respiratory Rate 19 18 18 Blood Pressure Blood Pressure [Left Arm] 145/91 Blood Pressure [Right Arm] 139/85 O2 Sat by Pulse Oximetry 100 99 12/24/19 08:55 12/24/19 09:40 12/24/19 09:45 Temperature 97.5 F L Pulse Rate 71 72 Pulse Rate [Left Brachial] Pulse Rate [Right Brachial] Respiratory Rate 16 16 16 Blood Pressure 182/108 194/108 Blood Pressure [Left Arm] Blood Pressure [Right Arm] O2 Sat by Pulse Oximetry 99 100 12/24/19 09:50 04/23/20 09:55 12/24/19 10:00 Temperature Pulse Rate 68 68 66 Pulse Rate [Left Brachial] Pulse Rate [Right Brachial] Respiratory Rate 18 18 18 Blood Pressure 189/103 189/109 184/102 Blood Pressure [Left Arm] Blood Pressure [Right Arm] O2 Sat by Pulse Oximetry 100 100 97 12/24/19 10:05 12/24/19 10:10 12/24/19 10:25 Temperature 98.1 F 98.1 F Pulse Rate 69 71 Pulse Rate [Left Brachial] Pulse Rate [Right Brachial] 126 H 126 H Respiratory Rate 18 18 18 Blood Pressure 165/98 162/91 Blood Pressure [Left Arm] Blood Pressure [Right Arm] 162/89 156/93 O2 Sat by Pulse Oximetry 97 96 98 12/24/19 10:40 12/24/19 10:55 12/24/19 11:10 Temperature 98.1 F 98.1 F 98.1 F Pulse Rate Pulse Rate [Left Brachial] Pulse Rate [Right Brachial] 96 H 98 H 78 Respiratory Rate 18 18 18 Blood Pressure Blood Pressure [Left Arm] Blood Pressure [Right Arm] 151/87 155/88 149/89 O2 Sat by Pulse Oximetry 98 96 98 12/24/19 12:10 12/24/19 12:23 Temperature 98.1 F Pulse Rate Pulse Rate [Left Brachial] Pulse Rate [Right Brachial] 74 Respiratory Rate 18 17 Blood Pressure Blood Pressure [Left Arm] Blood Pressure [Right Arm] 157/89 O2 Sat by Pulse Oximetry 97 Labs: Laboratory Last Values WBC 7.2 X10^3/uL (3.6-10.0) 12/24/19 04:34 RBC 5.03 X10^6/uL (4.7-6.0) 12/24/19 04:34 Hgb 14.2 g/dL (13.5-18.0) 12/24/19 04:34 Hct 42.2 % (42.0-54.0) 12/24/19 04:34 MCV 83.8 fL (80.0-100.0) 12/24/19 04:34 MCH 28.2 pg (27.0-34.0) 12/24/19 04:34 MCHC 33.6 g/dL (33.0-35.0) 12/24/19 04:34 RDW 15.5 % (11.6-16.5) 12/24/19 04:34 Plt Count 206 X10^3/uL (150.0-450.0) 12/24/19 04:34 MPV 8.5 fL (7.4-11.0) 12/24/19 04:34 Neut % (Auto) 52.9 % (42.0-75.0) 12/24/19 04:34 Lymph % (Auto) 38.1 % (21.0-51.0) 12/24/19 04:34 [place] % (Auto) 7.2 % (0.0-13.0) 12/24/19 04:34 Eos % (Auto) 1.0 % (0.9-2.9) 12/24/19 04:34 Baso % (Auto) 0.8 % (0.2-1.0) 12/24/19 04:34 Neut # (Auto) 3.8 x10^3/uL (2.2-4.8) 12/24/19 04:34 Lymph # (Auto) 2.7 X10^3/uL (1.3-2.9) 12/24/19 04:34 [place] # (Auto) 0.5 x10^3/uL (0.3-0.8) 12/24/19 04:34 Eos # (Auto) 0.1 x10^3/uL (0.0-0.2) 12/24/19 04:34 Baso # (Auto) 0.1 X10^3/uL (0.0-0.1) 12/24/19 04:34 Absolute Nucleated RBC 0.0 /100WBC 12/24/19 04:34 Sodium 138 mmol/L (136-145) 12/24/19 04:34 Corrected Sodium 139 mmol/L (136-145) 12/24/19 04:34 Potassium 3.3 mmol/L (3.5-5.1) L 12/24/19 04:34 Chloride 103 mmol/L (98-107) 12/24/19 04:34 Carbon Dioxide 29.4 mmol/L (21-32) 12/24/19 04:34 BUN 12 mg/dL (7-18) 12/24/19 04:34 Creatinine 1.21 mg/dL (0.70-1.30) 12/24/19 04:34 Est GFR (MDRD) Af Amer > 60 (>60) 12/24/19 04:34 Est GFR (MDRD) Non-Af > 60 (>60) 12/24/19 04:34 Glucose 138 mg/dL (65-99) H 12/24/19 04:34 POC Glucose (mg/dL) 203 mg/dL (65-99) H 12/24/19 11:18 Calcium 8.5 mg/dL (8.5-10.1) 12/24/19 04:34 Corrected Calcium 9.6 mg/dL (8.5-10.1) 12/24/19 04:34 Magnesium 1.9 mg/dL (1.7-2.9) 12/24/19 04:34 Total Bilirubin 0.30 mg/dL (0.2-1.0) 12/24/19 04:34 AST 15 Units/L (15-37) 12/24/19 04:34 ALT 15 Units/L (12-78) 12/24/19 04:34 Alkaline Phosphatase 80 Units/L (46-116) 12/24/19 04:34 Creatine Kinase 200 Units/L (39-308) 12/23/19 18:09 CK-MB (CK-2) 1.1 ng/mL (0-4.0) 12/23/19 18:09 CK/CKMB % Calc 0.6 % (<4) 12/23/19 18:09 Troponin I < 0.02 ng/mL (0-1.5) 12/23/19 18:09 Total Protein 6.2 g/dL (6.4-8.2) L 12/24/19 04:34 Albumin 2.6 g/dL (3.4-5.0) L 12/24/19 04:34 Globulin 3.6 g/dL (2.5-4.5) 12/24/19 04:34 Albumin/Globulin Ratio 0.7 Ratio (1.1-2.1) L 12/24/19 04:34 Lipase 122 Units/L (73-393) 12/22/19 10:06 Tissue Pathology To follow 12/24/19 09:30 Reason For Visit: ABDOMINAL PAIN Discharge Date Discharge Date: 12/24/19 Discharge Diagnosis All Active Problems (Updated 12/22/19 @ 15:24 by Candelario Cortez) Status post laparoscopic cholecystectomy (Acute) Diabetes (Acute) Hypertension (Acute) Abdominal pain (Acute) Gastritis (Acute) Plan of Treatment: Continue with present treatment and follow up plan. Pt is to keep follow up appointment as instructed and take medications as ordered. Discharge Medications Discharge Medications: No Known Drug Allergies Allergy (Verified 12/22/19 14:49) CONTINUE taking the following medications Humalog Mix 75-25(U-100)Insuln 25 unit SUBCUT HS 12/22/19 [History] Humalog Mix 75-25(U-100)Insuln 45 ml SUBCUT DAILY 12/22/19 [History] losartan-hydrochlorothiazide [Hyzaar] 1 tab PO DAILY 12/22/19 [History] New Prescriptions esomeprazole magnesium 40 mg PO DAILY 30 Days #30 cap 12/24/19 [Rx] famotidine 20 mg PO BID 30 Days #60 tab 12/24/19 [Rx] ondansetron HCl 4 mg PO Q8H PRN 10 Days #30 tab 12/24/19 [Rx] Follow up and Referral Follow Up: 1 Week (PCP) Discharge Disposition Discharge Disposition: Home Discharge Condition: Stable
[2019-12-24 14:07] VITALS: BP 154/93
[2019-12-24] MEDS ORDERED: DIPRIVAN VIAL ONE (14:33)
[2019-12-24] MEDS ORDERED: VERSED ONE (14:33)
[2019-12-24] MEDS ORDERED: ZOFRAN INJ 4 MG VIAL ONE (14:33)
[2019-12-24] MEDS ORDERED: NORCURON INJ 10 MG VIAL ONE (14:33)
[2019-12-24] MEDS ORDERED: ULTANE GAS IN ONE (14:33)
[2019-12-24] MEDS ORDERED: QUELICIN (OR ANECTINE) ONE (14:33)
[2019-12-24] MEDS ORDERED: TORADOL 30 MG VIAL ONE (14:33)
[2019-12-24] MEDS ORDERED: ROBINUL ONE (14:33)
[2019-12-24] MEDS ORDERED: NEOSTIGMINE INJ ONE (14:33)
== END 2019-12-24 14:00 | disposition home or self-care (01) ==
LOC: ER 09:34 → MED/SURG 09:34
PROVIDERS: ADMIT Family Medicine; ATTEND Family Medicine
DX: I10 Essential (primary) hypertension; F12.10 Cannabis abuse, uncomplicated; Z72.0 Tobacco use; K82.8 Other specified diseases of gallbladder; Z79.4 Long term (current) use of insulin; K29.50 Unspecified chronic gastritis without bleeding; E10.65 Type 1 diabetes mellitus with hyperglycemia; K81.1 Chronic cholecystitis; R11.2 Nausea with vomiting, unspecified; R10.13 Epigastric pain; Z11.59 Encounter for screening for other viral diseases